=== PATIENT | female | born 1955 | race Caucasian/White ===

== ENCOUNTER 2024-01-28 09:52 | Emergency (ER) | payer MEDICARE | END 2024-01-28 13:10 | disposition home or self-care (01) | LOC: ERS 09:52 | DX: K57.90 Diverticulosis of intestine, part unspecified, without perforation or abscess without bleeding (principal); R94.31 Abnormal electrocardiogram [ECG] [EKG]; I10 Essential (primary) hypertension; K21.9 Gastro-esophageal reflux disease without esophagitis; Z79.899 Other long term (current) drug therapy | CPT/HCPCS: 74177; 80053; 83690; 83735; 84484; 85025; 93005; 94760; S0028; 96372; 96374; Q9967 ==

== ENCOUNTER 2024-07-24 09:18 | Outpatient (CLI) | payer MEDICARE | END 2024-07-24 09:19 | disposition home or self-care (01) | LOC: BICMAMMO 09:18 | PROVIDERS: ATTEND Family Medicine | DX: Z12.31 Encounter for screening mammogram for malignant neoplasm of breast (principal); N63.12 Unspecified lump in the right breast, upper inner quadrant; Z85.528 Personal history of other malignant neoplasm of kidney | CPT/HCPCS: 77063; 77067 ==

== ENCOUNTER 2024-08-26 13:17 | Outpatient (CLI) | payer MEDICARE | END 2024-08-26 13:18 | disposition home or self-care (01) | LOC: BICMAMMO 13:17 | PROVIDERS: ATTEND Family Medicine | DX: R92.1 Mammographic calcification found on diagnostic imaging of breast (principal) | CPT/HCPCS: 77065; G0279 ==

== ENCOUNTER → 2024-09-08 | Day surgery (SDC) | payer MEDICARE | LOC: MAMMO 06:56 | PROVIDERS: ATTEND Family Medicine | PROC: 0HBT3ZX Excision of Right Breast, Percutaneous Approach, Diagnostic (ICD-10-PCS; principal; 2024-09-08) | DX: N60.11 Diffuse cystic mastopathy of right breast (principal); N60.81 Other benign mammary dysplasias of right breast; N62 Hypertrophy of breast; R92.1 Mammographic calcification found on diagnostic imaging of breast | CPT/HCPCS: 19081; 76098; A4648; 88305; 89060 ==

== ENCOUNTER 2025-04-28 15:52 | Outpatient (CLI) | payer MEDICARE | END 2025-04-28 15:53 | disposition home or self-care (01) | LOC: SCSRAD 15:52 | PROVIDERS: ATTEND Family Medicine | DX: R05.3 Chronic cough (principal) | CPT/HCPCS: 71046 ==

== ENCOUNTER 2025-06-04 13:07 | Outpatient (CLI) | payer MEDICARE | END 2025-06-04 13:08 | disposition home or self-care (01) | LOC: BICMRI 13:07 | PROVIDERS: ATTEND Orthopaedic Surgery | DX: M48.062 Spinal stenosis, lumbar region with neurogenic claudication (principal); M48.07 Spinal stenosis, lumbosacral region | CPT/HCPCS: 72148 ==